=== PATIENT | female | born 1970 | race African-American/Black ===

== ENCOUNTER 2018-01-08 09:15 | Outpatient (CLI) | payer OTHER ==
--- NOTE | 2018-01-08 12:02 | MRI ---
MRI BRAIN WITHOUT CONTRAST: HISTORY: The patient has been previously diagnosed with a pituitary adenoma. Currently, the patient is asympt omatic. Exam is required to assess the pituitary gland. COMPARISON: None. TECHNIQUE: A brain MRI is performed without intravenous Gadolinium administration. Multisequential, multiplanar imaging is performed. FINDINGS: No hemorrhage on the axial gradient echo sequence. The calvarium has a normal T1 marrow signal intensity. Midline brain parenchymal structures are unre markable. Note is made of a mucus retention cyst in the right maxillary sinus. The central arterial flow voids are maintained. Absent restricted diffusion. No erika mass, mass effect, or midline shift. Brain volume is age appropriate. Cortical santizo white matter differentiation is preserved. IMPRESSION: 1. Ventricles and sulci are patent and symmetric. 2. Coronal T1 and T2 weighted images demonstrate a partially empty sella. No evidence of a macroade noma. Pituitary stalk is midline. Visualized optic chiasm and optic nerves are unremarkable. 3. Unremarkable noncontrast brain MRI. No magnetic resonance imaging of a pituitary macroadenoma. A partially empty sella is noted. POS: [facility]
== END 2018-01-08 09:16 | disposition home or self-care (01) ==
LOC: SCSMRI 09:15
PROVIDERS: ATTEND Family Medicine
DX: D35.2 Benign neoplasm of pituitary gland (principal)
CPT/HCPCS: 70551

== ENCOUNTER 2019-07-28 20:12 | Inpatient (IN) | payer OTHER, SELFPAY ==
[2019-07-28] MEDS ORDERED: Labetalol HCl 100 MG/20 ML VIAL ONE (20:29)
--- NOTE | 2019-07-28 20:38 | RAD ---
XR Chest 1 View Portable History: Hypertension Comparison: Radiograph 2012 Findings: Lungs are clear. No pneumothorax or effusion. Cardiac silhouette and mediastinal contours a re within normal limits. No acute osseous abnormality. Impression: No acute intrathoracic abnormality.
--- NOTE | 2019-07-28 20:46 | CT ---
CT Brain WO Con History: Headache Comparison: Brain MRI 2018 Findings: No acute hemorrhage or infarct. No midline shift or mass effect. Ventricular size and extra -axial CSF spaces are normal. Calvarium is intact. Paranasal sinuses and mastoids are clear. Impression: No acute intracranial abnormality.
[2019-07-28 20:47] LABS: #Eosinphils 0.1 thou/uL (0.0-0.7); #Lymphocytes 2.7 thou/uL (1.20-3.40); #Monocytes 0.5 thou/uL (0.11-0.59); #Neutrophils 2.7 thou/uL (1.40-6.50); %Basophils 0.5 % (0.0-1.0); %Eosinophils 2.2 % (0.0-10.0); %Lymphocytes 44.3 % (21.0-51.0); %Monocytes 7.8 % (0.0-10.0); %Neutrophils 45.2 % (42.0-75.0); Hemoglobin 13.3 g/dL (12.0-16.0); Mean Corpuscular HGB CONC 34.5 g/dL (32.0-36.0); Mean Corpuscular Hemoglobin 29.1 pg (27.0-31.0); Mean Corpuscular Volume 84.3 fL (78.0-98.0); Mean Platelet Volume 6.8 fL (7.4-10.4); Platelet Count 297 thou/uL (130-400); RBC Distribution Width 11.8 % (11.5-14.5); Red Blood Cell (RBC) Count 4.58 mill/uL (4.20-5.40)
[2019-07-28 21:07] LABS: ALT (SGPT) 13 U/L (8-55); AST (SGOT) 14 U/L (5-34); Albumin 3.9 g/dL (3.5-5.0); Alkaline Phosphatase 49 U/L (40-110); Anion Gap 15 mmol/L (10-20); BUN (Urea Nitrogen) 10 mg/dL (7.0-18.7); Bilirubin, Total 0.2 mg/dL (0.2-1.2); CK (CPK) 145 U/L (29-168); Calc. Creatinine Clearance 0 mL/min (70-130); Calcium 9.3 mg/dL (7.8-10.44); Carbon Dioxide 23 mmol/L (22-29); Chloride 105 mmol/L (98-107); Estimated GFR-MDRD Greater than 90; Globulin 3.1 g/dL (2.4-3.5); Glucose 111 mg/dL (70-105); Potassium 3.6 mmol/L (3.5-5.1); Sodium 139 mmol/L (136-145)
[2019-07-28] MEDS ORDERED: Acetaminophen 500 MG TAB ONE (23:16)
[2019-07-28 23:29] VITALS: BMI 50.8
[2019-07-29] MEDS ORDERED: Labetalol HCl 100 MG/20 ML VIAL SLOW IVP PRN (00:20)
[2019-07-29] MEDS ORDERED: hydrALAZINE 20 MG/ML VIAL SLOW IVP PRN (00:20)
[2019-07-29] MEDS: traMADol HCl 50 MG TAB PO PRN ×3 (02:57→22:10)
[2019-07-29] MEDS ORDERED: Ondansetron ODT 4 MG TAB PO PRN (05:08)
[2019-07-29] MEDS ORDERED: Acetaminophen 650 MG Suppository PR PRN (05:08)
[2019-07-29] MEDS: Acetaminophen 325 MG TAB PO PRN ×3 (05:44→17:27)
--- NOTE | 2019-07-29 05:54 | HP ---
CHIEF COMPLAINT: Headache. HISTORY OF PRESENT ILLNESS: This is a 49-year-old female patient with past medical history of no significant medical problems, only obesity, came to the hospital after having severe sudden onset headache with no clear triggers, no alleviating factors. The headache was so severe. She reported as a worse headache in her life and she called 911. She was brought in here. She was found to have a systolic blood pressure in the 200s with diastolics in the 100s. The symptoms were associated with nausea, and symptoms improved after the blood pressure has decreased. REVIEW OF SYSTEMS: CONSTITUTIONAL: No fever, no chills or generalized weakness. RESPIRATORY: No cough, sputum production, or shortness of breath. CARDIOVASCULAR: No chest pain or palpitation. GASTROINTESTINAL: No nausea, vomiting, diarrhea, or abdominal pain. CAP MAKER: The patient has headache. No dizziness, or feeling lightheaded. GENITOURINARY: No burning on urination. EXTREMITIES: No leg swelling. All other systems were reviewed and negative except for the findings mentioned above. PAST MEDICAL HISTORY: Positive for IBS. SURGICAL HISTORY: Right knee arthroscopy, D and C, cystoscopy. PSYCHIATRIC HISTORY: No previous psychiatric history. SOCIAL HISTORY: The patient drinks socially. Denies drug use. KNOWN ALLERGIES: No known drug allergies. REPORTED MEDICATIONS: None. FAMILY HISTORY: Reviewed, noncontributory for current presentation. PHYSICAL EXAMINATION: VITAL SIGNS: On presentation, blood pressure 234/120, heart rate 85, respiratory rate was 18, temperature 98.7, pain was 8/10, oxygen saturation was 98% on room air. The blood pressure has come down to 153/80 during my examination. GENERAL APPEARANCE: The patient is alert, oriented, in no acute distress HEENT: Eyes, normal conjunctivae. Moist oral mucosa. Anicteric. No JVD. RESPIRATORY: Bilateral air entry. No rales. No wheezes. Symmetric expansion. CARDIOVASCULAR: Normal rate, regular rhythm. No murmurs. No gallop. No edema. ABDOMEN: Soft, normal bowel sounds. MUSCULOSKELETAL: Baseline range of motion and strength. SKIN: Warm, intact. No pallor. No rash. No redness. Capillary refill seems to be intact. NEUROLOGIC: No evidence of any new focal weakness. Cranial nerves seems to be intact. PSYCHIATRIC: The patient is in good mood. No anxiety. Optimal judgment. IMAGING STUDIES: EKG was reviewed. The patient has a heart rate at 81. Chest x-ray was reviewed. No acute intrathoracic abnormalities. Brain CT was reviewed. The patient had no acute intracranial abnormalities. LABORATORY DATA: Labs were reviewed. Hematology was normal. Chemistry was done, was normal except for glucose of 111. ASSESSMENT AND PLAN: The patient will be placed in the hospital with following medical problems: 1. Hypertensive urgency. The patient presented with severe headache that improved after blood pressure was in control, systolic was in the 220s and diastolic in the one teens. This is a new presentation for her. We have gone in details counseling about losing weight with diet. We are going to start antihypertensive medications at low doses as the patient has never received medications before and might have a good response to initial low dose of anti-hypertensive medications. She has stated she will find a primary care doctor. She will need to be followed closely especially at the very beginning of her treatment for dose adjustments. 2. Mildly elevated glucose. Hyperglycemia could be secondary to acute physical distress. 3. Morbid obesity. The patient has been counselled on weight loss with diet and exercise. 4. Deep venous thrombosis prophylaxis. Job ID: [id number] [facility]
[2019-07-29] MEDS: Carvedilol 3.125 MG TAB PO SCH ×2 (08:07→16:51)
[2019-07-29] MEDS ORDERED: FLU VACC QS2019-20(6MOS UP)/PF 60 MCG/0.5 ML SYRINGE IM ONE (09:00)
[2019-07-29] MEDS ORDERED: Enoxaparin Sodium 40 MG/0.4 ML SYRINGE SC SCH (09:00)
[2019-07-29] MEDS ORDERED: NORGESTIMATE ETHINYL ESTRADIOL PO SCH (09:00)
[2019-07-29] MEDS ORDERED: Lisinopril 10 MG TAB PO SCH (09:00)
[2019-07-29] MEDS ORDERED: Fioricet 325/50/40 mg Tablet PO PRN (17:03)
[2019-07-29] MEDS ORDERED: Aspirin/APAP/Caffeine Tab (Excedrin Migraine) PO PRN (17:03)
--- NOTE | 2019-07-29 22:33 | PRG ---
DATE OF SERVICE: SUBJECTIVE: A 49-year-old female with morbid obesity, presented to the hospital with headache. Her workup was consistent with hypertensive urgency with a blood pressure of 234/120. She has been started on oral antihypertensives. She denies any chest discomfort at this time. She continues to have headache, however, it is improving. She denies any focal neurologic deficit. REVIEW OF SYSTEMS: As discussed above. Patient denies any gross hematuria or epistaxis. CURRENT MEDICATIONS: Reviewed. PHYSICAL EXAMINATION: VITAL SIGNS: Temperature 98.6, pulse 94, respirations 20, blood pressure of 151/73, with O2 saturation of 96% on room air. GENERAL: A 49-year-old female, in no apparent distress. LUNGS: Clear to auscultation bilaterally. No wheezing, rales, or rhonchi. HEART: S1 and S2 present. Regular rate and rhythm. No rubs or gallops. ABDOMEN: Soft and nontender. Bowel sounds present. No rebound or guarding. EXTREMITIES: No edema or calf tenderness. NEUROLOGY: Grossly nonfocal. Moves all 4 extremities. PSYCHIATRY: Alert, awake, and oriented x3. LABORATORY FINDINGS: 1. WBC 6.0 with hemoglobin 13.3. 2. Sodium 139 with potassium 3.6, BUN 10, and creatinine 0.78. 3. Troponin was negative. 4. CT scan of the brain by my review was negative for acute findings. Chest x-ray by my review was negative for infiltrate. 5. Echocardiogram showed ejection fraction of 60% to 65% with mild mitral regurgitation. 6. Telemetry monitoring by my review showed sinus rhythm. IMPRESSION: 1. Hypertensive urgency. 2. Morbid obesity with a BMI of 50.8. 3. Suspected sleep apnea. 4. Mild mitral regurgitation. 5. Impaired glucose tolerance. PLAN: Patient has been started on carvedilol 3.125 mg twice a day along with lisinopril. Patient continues to have headaches. We will add Fioricet as needed. The headache is probably secondary to hypertensive urgency with probable migraine due to phono and photophobia. Echocardiogram was reviewed. She was extensively counseled on hypertension. DISPOSITION: Probably later today or in a.m. Job ID: [id number]
[2019-07-30] MEDS: Sodium Chloride 0.9% 1,000 ML IV SCH ×4 (01:08→22:55)
[2019-07-30] MEDS ORDERED: Sodium Chloride 0.9% 500 ML IVPB SCH (02:00)
[2019-07-30] MEDS: Ondansetron PF 4 MG/2 ML Vial IVP PRN ×2 (05:12→22:44)
[2019-07-30 06:50] LABS: Troponin I Less than 0.010 ng/mL (< 0.028)
--- NOTE | 2019-07-30 07:45 | CT ---
PRELIMINARY REPORT/[facility]/EMERGENCY AFTER HOURS PROCEDURE: PROCEDURE INFORMATION: Exam: CT Angiography Chest With Contrast Exam date and time: 07/30/2019 2:47 AM Clinical history: 49 years old, female; Other: Syncope; Patient HX: F49, eval for pe, elevated ddimer of 13.26. Patient states she got up to use the restroom and she became light headed and felt like sh e would faint. Denies chest pain or SOB. TECHNIQUE: Imaging protocol: Computed tomographic angiography of the chest with intravenous contrast. 3D renderi ng: MIP reconstructed images were created and reviewed. COMPARISON: No relevant prior studies available. FINDINGS: Enlarged thyroid gland without discrete focal lesion. Pulmonary arteries: Suboptimal enhancement of pulmonary arteries without definitive pulmonary emboli. Aorta: No aortic aneurysm. No aortic dissection. Lungs: There are multiple bilateral scattered pulmonary nodules measuring up to 7.5 mm. No consolidat ion. No masses. Pleural space: No pneumothorax. No pleural effusion. Heart: Mild global cardiomegaly. No pericardial effusion. Lymph nodes: No enlarged lymph nodes. Bones/joints: No acute fracture. Soft tissues: Unremarkable. IMPRESSION: Suboptimal enhancement of pulmonary arteries without definitive pulmonary emboli. There are multiple bilateral scattered pulmonary nodules measuring up to 7.5 mm. For patients at low risk (minimal or absent history of smoking and of other known risk factors), recommend CT at 3-6 sherrill hs, then consider CT at 18-24 months. For patients at high risk (history of smoking or of other known risk factors), recommend CT at 3-6 months, then CT at 18-24 months. (Lynne et al., Fleischner Society, 2017) Thank you for allowing us to participate in the care of your patient. Dictated and Authenticated by: Roxane Rebollar MD 07/30/2019 3:36 AM Central Time ([place] & [place]) FINAL REPORT CT ANGIOGRAM OF CHEST: Date: 07/30/19 HISTORY: Elevated D-Dimer. COMPARISON: None. TECHNIQUE: CT angiogram of the chest is performed in the axial plane. Three-dimensional reformatted images are s ubmitted for interpretation. FINDINGS: Limited evaluation of the pulmonary arterial system due to poor timing of contrast bolus. No obvious central filling defects. Mediastinal structures and visualized solid organs are unremarkable. Trachea and central bronchi are patent. There are multiple scattered pulmonary nodules. The largest n odule is noted in the right lower lobe, measuring approximately 0.9 cm. IMPRESSION: This report is in agreement with the preliminary report by Nicole. Limited evaluation of the pulmonary arterial system due to timing of contrast bolus. No obvious centr al PE. Multiple lung parenchymal nodules as described in the preliminary report by Nicole. CODE LN POS: [facility]
[2019-07-30] MEDS ORDERED: Enoxaparin Sodium 40 MG/0.4 ML SYRINGE SC SCH (09:00)
[2019-07-30] MEDS ORDERED: Lisinopril 20 MG TAB PO SCH (09:00)
[2019-07-30] MEDS: Acetaminophen 325 MG TAB PO PRN ×2 (13:00→22:43)
[2019-07-30] MEDS ORDERED: Senokot 8.6 MG TAB PO PRN (13:09)
[2019-07-30] MEDS ORDERED: Bisacodyl 10 MG SUPP PR PRN (13:09)
[2019-07-30] MEDS ORDERED: Polyethylene Glycol 3350 17 GM Packet PO PRN (13:09)
[2019-07-30] MEDS ORDERED: Simethicone Chewable 80 MG TAB PO PRN (13:12)
[2019-07-30] MEDS ORDERED: Diabetic Tussin 200 MG/10 ML UDCUP PO PRN (13:12)
[2019-07-30] MEDS ORDERED: Iopamidol 370 76% 100 ML VIAL ONE (14:47)
--- NOTE | 2019-07-30 15:50 | RAD ---
TWO VIEW ABDOMEN: 07/30/19 INDICATION: Nausea. Abdominal pain. FINDINGS: There are scattered loops of air filled bowel, some of which are mildly dilated. No obvious free air on the upright view. Imaged lung bases are grossly clear. There is excreted contrast of the urinary b ladder. IMPRESSION: Mild prominence of scattered air filled small bowel. This could relate to an ileus or developing sergio l obstruction. Continued imaging follow-up may be obtained as clinically necessary for further evalua tion. POS: [facility]
--- NOTE | 2019-07-30 19:26 | PRG ---
DATE OF SERVICE: 07/30/2019 SUBJECTIVE: A 49-year-old female with morbid obesity, presented to the hospital with headache and hypertensive urgency with a blood pressure 234/120. She was started on lisinopril 10 mg and carvedilol 3.125 mg. Her blood pressure remained stable yesterday. However last night, the patient had a near syncopal episode while she was on the commode. Her blood pressure dropped to 70/43 on standing. Prior to that, her blood pressure was in 140s to 150s until 9:00 pm. She was diaphoretic and lightheaded at this time. Headache has improved. However, today she developed abdominal discomfort with mild nausea. She continues to have small bowel movements. No fever or chills reported. OBJECTIVE: VITAL SIGNS: Orthostatic vitals this morning was negative. However, this afternoon, her blood pressure dropped to 90/52. Her O2 saturation is 97% on room air, respirations of 16, pulse rate of 70 with a temperature of 98.4. GENERAL: A 49-year-old female, in no apparent distress except for low-grade abdominal discomfort. LUNGS: Clear to auscultation bilaterally. No wheezing, rales, or rhonchi. HEART: S1 and S2 present. Regular rate and rhythm. No rubs or gallops. ABDOMEN: Soft, mild diffuse tenderness. No rebound or guarding. No costovertebral angle tenderness. Bowel sounds are present. EXTREMITIES: No edema or calf tenderness. NEUROLOGICAL: Grossly nonfocal. LABORATORY DATA: Troponin this morning was negative. CT angiogram of the chest by my review was negative for central pulmonary embolism. It showed multiple bilateral scattered pulmonary nodules measuring up to 7.5 mm. Echocardiogram showed left ventricular ejection fraction 60% to 65% with mild mitral regurgitation. IMPRESSION: 1. Hypertensive urgency on admission. 2. Near syncope due to orthostatic hypotension. Please note that patient was on lisinopril 10 mg and carvedilol 3.125 mg. 3. New onset abdominal discomfort, that started this morning. KUB showed mild prominence of the scattered air-filled small bowel, which could be related to ileus versus developing bowel obstruction. 4. Suspected sleep apnea. A sleep study as outpatient was recommended. 5. Morbid obesity with a BMI of 50.8. 6. Mild mitral regurgitation. 7. Impaired glucose tolerance. 8. Multiple bilateral scattered pulmonary nodules measuring up to 7.5 mm. The patient will need a repeat CT scan in 3-6 months per Radiology recommendation. PLAN: We will continue with gentle IV hydration. We will change the diet to clear liquid diet until midnight. We will keep n.p.o. past midnight. Consult Gastroenterology in a.m. Recheck labs in a.m. Coreg and lisinopril were discontinued. The patient was advised to ambulate in the hallway. Plan of care was discussed with the patient in detail. She stated understanding. Job ID: [id number]
[2019-07-30] MEDS: traMADol HCl 50 MG TAB PO PRN (22:43)
[2019-07-31 05:21] LABS: #Basophils 0.1 thou/uL (0.0-0.2); #Eosinphils 0.1 thou/uL (0.0-0.7); #Lymphocytes 2.1 thou/uL (1.20-3.40); #Monocytes 0.6 thou/uL (0.11-0.59); #Neutrophils 6.8 thou/uL (1.40-6.50); %Basophils 0.5 % (0.0-1.0); %Eosinophils 1.2 % (0.0-10.0); %Lymphocytes 21.2 % (21.0-51.0); %Monocytes 6.6 % (0.0-10.0); %Neutrophils 70.5 % (42.0-75.0); Hemoglobin 12.8 g/dL (12.0-16.0); Mean Corpuscular HGB CONC 34.6 g/dL (32.0-36.0); Mean Corpuscular Hemoglobin 29.4 pg (27.0-31.0); Mean Corpuscular Volume 84.9 fL (78.0-98.0); Platelet Count 293 thou/uL (130-400); RBC Distribution Width 11.9 % (11.5-14.5); Red Blood Cell (RBC) Count 4.36 mill/uL (4.20-5.40); White Blood Cell (WBC) Count 9.7 thou/uL (4.8-10.8)
[2019-07-31 05:50] LABS: ALT (SGPT) 10 U/L (8-55); AST (SGOT) 16 U/L (5-34); Albumin 3.5 g/dL (3.5-5.0); Alkaline Phosphatase 42 U/L (40-110); Anion Gap 10 mmol/L (10-20); BUN (Urea Nitrogen) 10 mg/dL (7.0-18.7); Bilirubin, Total 0.3 mg/dL (0.2-1.2); Calc. Creatinine Clearance 210 mL/min (70-130); Calcium 8.5 mg/dL (7.8-10.44); Carbon Dioxide 24 mmol/L (22-29); Chloride 105 mmol/L (98-107); Estimated GFR-MDRD Greater than 90; Globulin 2.6 g/dL (2.4-3.5); Glucose 113 mg/dL (70-105); Magnesium 1.8 mg/dL (1.6-2.6); Potassium 4.3 mmol/L (3.5-5.1); Protein, Total 6.1 g/dL (6.0-8.3); Sodium 135 mmol/L (136-145)
[2019-07-31] MEDS: Sodium Chloride 0.9% 1,000 ML IV SCH ×2 (07:41→08:29)
[2019-07-31 09:01] LABS: Pregnancy Test - Urine (BHCG) Negative (Negative); Pregu Control Background? CLEAR/WHITE (CLR/WHITE); Pregu Control Bar Appear? YES (CONTROL BAR); Specific Gravity 1.014 (1.002-1.036)
[2019-07-31 09:14] LABS: Bilirubin Negative (Negative); Blood, Urine 2+ (Negative); Clarity Clear (Clear); Glucose, Urine (Dipstick) Normal (Negative); Leukocyte Negative Leu/uL (Negative); Nitrite Negative (Negative); Protein, Urine (Dipstick) Negative (Neg-Trace); Urobilinogen Normal mg/dL (Less than 2)
[2019-07-31 09:24] LABS: Bacteria/HPF 2+ HPF (None Seen); WBC/HPF None Seen HPF (0-3)
--- NOTE | 2019-07-31 15:21 | CT ---
CT abdomen and pelvis with IV and oral contrast HISTORY: Abdominal pain. Abnormal radiograph. Possible ileus. FINDINGS: Small nodules at the partially visualized lung bases have been better detailed on recent CT chest exams. Solid organs are intact. No free air or free fluid. Oral contrast is present throughout the small and large bowel. No evidence of obstruction or edema. A ppendix is not visualized. Possibly surgically absent? Urinary bladder is unremarkable. Uterus measures up to 17.7 cm length and is expanded by multiple ill -defined hypoechoic masses measuring up to 5.8 cm. IMPRESSION: No evidence of bowel obstruction, inflammation, or ileus. No active inflammatory abnormal ities are demonstrated. Severe fibroid involvement of the uterus.
[2019-07-31] MEDS ORDERED: cefTRIAXone\\ROCEPHIN 1 GM in Sodium Chloride 0.9% 100 ML IVPB SCH (23:00)
[2019-07-31] MEDS ORDERED: cefTRIAXone\\ROCEPHIN 1 GM VIAL ONE (23:47)
[2019-08-01 04:27] LABS: #Eosinphils 0.1 thou/uL (0.0-0.7); #Lymphocytes 2.3 thou/uL (1.20-3.40); #Monocytes 0.6 thou/uL (0.11-0.59); #Neutrophils 4.7 thou/uL (1.40-6.50); %Basophils 0.1 % (0.0-1.0); %Eosinophils 1.7 % (0.0-10.0); %Lymphocytes 29.6 % (21.0-51.0); %Monocytes 8.1 % (0.0-10.0); %Neutrophils 60.4 % (42.0-75.0); Hemoglobin 12.5 g/dL (12.0-16.0); Mean Corpuscular HGB CONC 34.3 g/dL (32.0-36.0); Mean Corpuscular Hemoglobin 29.3 pg (27.0-31.0); Mean Corpuscular Volume 85.2 fL (78.0-98.0); Mean Platelet Volume 7.1 fL (7.4-10.4); Platelet Count 277 thou/uL (130-400); RBC Distribution Width 11.8 % (11.5-14.5); Red Blood Cell (RBC) Count 4.27 mill/uL (4.20-5.40); White Blood Cell (WBC) Count 7.7 thou/uL (4.8-10.8)
[2019-08-01 04:37] LABS: Lactic Acid 2.3 mmol/L (0.5-2.2)
[2019-08-01 04:44] LABS: ALT (SGPT) 12 U/L (8-55); AST (SGOT) 19 U/L (5-34); Albumin 3.7 g/dL (3.5-5.0); Alkaline Phosphatase 44 U/L (40-110); Anion Gap 12 mmol/L (10-20); BUN (Urea Nitrogen) 8 mg/dL (7.0-18.7); Bilirubin, Total 0.2 mg/dL (0.2-1.2); Calc. Creatinine Clearance 194 mL/min (70-130); Calcium 8.8 mg/dL (7.8-10.44); Carbon Dioxide 26 mmol/L (22-29); Chloride 104 mmol/L (98-107); Estimated GFR-MDRD Greater than 90; Glucose 109 mg/dL (70-105); Protein, Total 6.7 g/dL (6.0-8.3); Sodium 138 mmol/L (136-145)
[2019-08-01] MEDS: Sodium Chloride 0.9% 1,000 ML IV SCH (06:10)
--- NOTE | 2019-08-01 07:26 | PDOC.HOSPP ---
- Subjective Encounter Date: 07/31/19 Encounter Time: 08:00 Subjective: Patient seen and examined for labile HTN. Abd pain getting worse - periumbilical - worse with movement. No diarrhea. Mild nausea. No further vomiting. No other complaints. No overnight events - Objective Vital Signs & Weight: Vital Signs (12 hours) Temp Pulse Resp BP BP Pulse Ox 08/01/19 03:40 98.7 F 89 20 129/74 99 07/31/19 20:20 98.6 F 98 16 140/77 96 Weight Weight 314 lb 9.6 oz I&O: 07/31/19 08/01/19 08/02/19 06:59 06:59 06:59 Intake Total 1786 1899 Balance 1786 1899 Result Diagrams: 08/01/19 03:37 08/01/19 03:37 EKG Reviewed by me: Yes (Tele SR) Hospitalist ROS - Review of Systems Cardiovascular: denies: chest pain, palpitations, orthopnea, paroxysmal noc. dyspnea, edema, light headedness, other Gastrointestinal: denies: nausea, vomiting, abdominal pain, diarrhea, constipation, melena, hematochezia, other - Medication Medications: Active Medications Generic Name Dose Route Start Last Admin Trade Name Freq PRN Reason Stop Dose Admin Acetaminophen 650 mg 07/29/19 05:08 07/30/19 22:43 Tylenol PO 650 mg Q4H PRN Administration Headache/Fever/Mild Pain (1-3) Sodium Chloride 1,000 mls @ 75 mls/hr 07/31/19 08:17 08/01/19 06:10 Normal Saline 0.9% IV 1,000 mls .[id number] SERENE Administration Ceftriaxone Sodium 1 gm/ 100 mls @ 200 mls/hr 07/31/19 23:00 07/31/19 23:56 Sodium Chloride IVPB 100 mls 2300 SERENE Administration Ondansetron HCl 4 mg 07/29/19 05:08 07/30/19 13:00 Zofran Odt PO 4 mg Q6H PRN Administration Nausea/Vomiting Ondansetron HCl 4 mg 07/29/19 05:08 07/30/19 22:44 Zofran IVP 4 mg Q6H PRN Administration Nausea/Vomiting Simethicone 80 mg 07/30/19 13:12 07/30/19 22:44 Mylicon Chewable PO 80 mg PCHS PRN Administration Gas Pain Tramadol HCl 50 mg 07/29/19 02:32 07/30/19 22:43 Ultram PO 50 mg Q4H PRN Administration Moderate Pain (4-6) - Exam General Appearance: NAD Neck: no JVD Heart: RRR, no gallops Respiratory: CTAB, no rales Gastrointestinal: soft, normal bowel sounds, no palpable masses, tender to palpation (gen) Extremities: no edema Hosp A/P - Plan DVT proph w/SCDs IMPRESSION: 1. Hypertensive urgency on admission. 2. Near syncope due to orthostatic hypotension. Please note that patient was on lisinopril 10 mg and carvedilol 3.125 mg. 3. Abd pain with abnormal KUB. 4. Suspected sleep apnea. 5. Morbid obesity with a BMI of 50.8. 6. Mild mitral regurgitation. 7. Impaired glucose tolerance. 8. Multiple bilateral scattered pulmonary nodules measuring up to 7.5 mm. The patient will need a repeat CT scan in 3-6 months per Radiology recommendation. PLAN: CT abd due to persistent Abd pain GI consult Cont IVF BP meds on hold due to labile HTN Cont to monitor
[2019-08-01 12:14] VITALS: BP 129/77; TEMP 97.9
--- NOTE | 2019-08-01 13:34 | CON ---
DATE OF CONSULTATION: 07/31/2019 HISTORY OF PRESENT ILLNESS: Ms. 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 On the day of admission, she was feeling bad with terrible headache, that worse she has ever had, ultimately summoned the EMS and was brought in with malignant hypertension. She had a CAT scan of her brain, which was okay. She had an echocardiogram, which showed normal cardiac function, mild MR was present on that. She was doing good until yesterday. Apparently, she did start developing some crampy lower abdominal pain, like she needs to go to the bathroom. She went to go to the bathroom, had a syncopal episode. Here in the ER, she had IV fluids. Her blood pressure medications were stopped. Apparently, she got Gas-X and some Ultram last night for pain. Today, she got a CAT scan, pending. Her pain is much better now. She reports she has not had any pain like this in the past. She does not have tendency toward constipation, in fact she has some diarrhea, predominant irritable bowel. She has not had endoscopies before. She denies any fever or chills. She denies dysuria, frequency, or urgency. She denies any vaginal discharge. She is starting to spot for menstrual cycle, but she does not think this is pain consistent with menstrual cramps. She has no fever or chills, but she did vomit once with the pain, but has not been nauseated typically, overall is feeling a little better. She is drinking contrast for a CT. Yesterday, she had an x-ray, KUB ordered by the primary service taking care of her, that showed mild prominence of some air-filled bowel loops. The radiologist said this could be an ileus or developing bowel obstruction. The patient has not had any previous bowel obstructions. PAST MEDICAL HISTORY: Notable for irritable bowel, diarrhea predominant. Negative for diabetes, hyperlipidemia, or prior cardiac disease. PAST SURGICAL HISTORY: Includes; 1. Umbilical hernia repair. 2. She has had an endometrial ablation. 3. Right knee arthroscopy. 4. Cystoscopy for hematuria in the past. SOCIAL HISTORY: The patient drinks alcohol socially. Does not use drugs. Does not smoke. ALLERGIES: NONE KNOWN. MEDICATIONS: At home, none except for control pill. Here, she has been on; 1. P.r.n. Tylenol. 2. Excedrin Migraine. 3. Bisacodyl. 4. Zofran p.r.n. 5. Protonix. 6. MiraLAX p.r.n. 7. Senokot p.r.n. 8. Mylicon p.r.n. 9. Tramadol p.r.n. 10. Normal saline. She had been started on lisinopril and carvedilol, but those have been held. Also, butalbital with acetaminophen and caffeine was given and has been discontinued. FAMILY HISTORY: Father of pancreatic cancer in his late 50s. No family history of uterine or bladder or colon cancers. REVIEW OF SYSTEMS: Negative for dysphagia, odynophagia, reflux, melena, hematochezia, hematemesis, or issues with constipation. Last bowel movement was just a few days before the day of admission. She has no history of hypertension, chest pain, dyspnea on exertion, orthopnea, or edema in the past. PHYSICAL EXAMINATION: GENERAL: The patient is resting comfortably, sitting up in the side of the bed . She is in no distress. She is overweight. VITAL SIGNS: Temperature is 98.2 to 98.9, she has been afebrile since admission, temperature is 98.4, blood pressure 133/78. HEENT: Oropharynx without lesions. Neck is supple without any adenopathy. Conjunctivae and sclerae are clear. There is no bruits or supraclavicular adenopathy. LUNGS: Clear to auscultation bilaterally without wheezing. HEART: Regular rate and rhythm without clicks or murmurs. ABDOMEN: Soft, protuberant. There is large pannus, unable to palpate for hepatosplenomegaly. There is no evidence of umbilical hernia. There is no evidence of inguinal hernias. There is really no tenderness in the lower abdomen at this time. RECTAL: Brown stool in the vault. There is no impaction. EXTREMITIES: Some trace edema. LABORATORY STUDIES: White count 9.7 today, hemoglobin 12.8, and platelet count 293. Sodium 135, potassium 4.3, BUN and creatinine are 10 and 0.7. Liver function tests normal. Troponins are negative. Urine showed 2+ , red blood cells 4-6 squames. MICROBIOLOGY: None. ASSESSMENT: Vague lower abdominal pain, this is after receiving blood pressure medicines, being admitted for hypertensive urgency/crisis. She has a benign exam. She has an x-ray, that does not really add much to the process. This may have been some relative intestinal ischemia from hypoperfusion and hypotension as her pressure was in the 70s when she had a vasovagal episode, going to the bathroom. There are no overt signs of bowel obstruction clinically. There are no overt signs of peritonitis, gastroenteritis, or colitis. RECOMMENDATIONS: 1. We will proceed with a CAT scan, shows it has been ordered. I suspect this will be normal and we can advance diet as tolerated. If it is not, we can make further recommendations based on those findings. 2. She should have a screening colonoscopy. This could be done as an outpatient at a later date in our office. We will follow along with you. Job ID: [id number]
--- NOTE | 2019-08-02 00:43 | DIS ---
DATE OF ADMISSION: 07/28/2019 DATE OF DISCHARGE: 08/01/2019 DISCHARGE DISPOSITION: Home. FOLLOWUP: 1. Follow up with primary care physician, Dr. Bradly Rodriguez, in 1 week. 2. Follow up with Dr. Gold in 2 to 3 weeks. ALLERGIES: NO KNOWN DRUG ALLERGIES. PATIENT WAS SEEN AND EXAMINED ON THE DAY OF DISCHARGE. DENIES ANY NEW COMPLAINTS. NO CHEST PAIN, SHORTNESS OF BREATH, OR PALPITATIONS REPORTED. SYMPTOMATICALLY, SHE FEELS FINE. DISCHARGE MEDICATIONS: 1. Amlodipine 2.5 mg daily as needed for systolic blood pressure over 140s. 2. Macrobid 100 mg b.i.d. for 1 week. 3. Oral control will be resumed. BRIEF HOSPITAL COURSE: Patient is a 49-year-old female, with morbid obesity and interval bowel syndrome, presented to the hospital with significant headache. Please refer to the history and physical for further details. The patient was admitted to the hospital with a diagnosis of hypertensive urgency. Her blood pressure in the emergency room was 234/120. She received several IV medications in the emergency room. Later on, her blood pressure remained stable on lisinopril 10 mg daily and carvedilol 3.125 b.i.d. On the following night, patient had vasovagal episode with a blood pressure in systolic 70s. Antihypertensives were discontinued at this time. She was started on IV fluids with improvement in her blood pressure. Next morning, she developed abdominal cramping. KUB showed ileus versus developing bowel obstruction. For this reason, she underwent a CT scan of the abdomen and pelvis that was negative for acute findings. It showed severe fibroid involvement of the uterus. Her abdominal pain has significantly improved. She also had an echocardiogram that showed ejection fraction 60% to 65% with normal left ventricular size. During the episode of low blood pressure, a CT angiogram of the chest was performed that showed multiple pulmonary nodules. FINAL DIAGNOSES: 1. Hypertensive urgency on admission probably precipitated by stress. Her ex- was recently hospitalized for respiratory failure and cardiac arrest requiring intubation per patient report. Please note that antihypertensives have been discontinued. 2. Near syncopal episode due to orthostatic hypotension. Patient was on lisinopril 10 mg and carvedilol 3.125 mg b.i.d. during this episode. 3. Abdominal pain with abnormal KUB. CT scan of the abdomen, however, was negative. 4. Severe uterine fibroid. 5. Suspected sleep apnea. 6. Multiple pulmonary nodules. 7. Mild mitral regurgitation. 8. Morbid obesity with a BMI of 50.8. 9. Impaired glucose tolerance. 10. Lactic acidosis probably secondary to hypotension. 11. Hyponatremia. PLAN: Plan of care was discussed with the patient in detail. She stated understanding. Job ID: [id number]
--- NOTE | 2019-08-02 02:34 | EKG ---
Test Reason : Blood Pressure : / mmHG Vent. Rate : 081 BPM Atrial Rate : 081 BPM P-R Int : 152 ms QRS Dur : 096 ms QT Int : 376 ms P-R-T Axes : 049 003 033 degrees QTc Int : 436 ms Normal sinus rhythm Normal ECG Confirmed by CHARLIE JIMENEZ, GUME Levin ([id number]), food expeditor MATTHEW WATERS ([id number]) on 08/02/2019 2:34:02 AM Referred By: Confirmed By:GUME GUERRA MD
== END 2019-08-01 13:37 | disposition home or self-care (01) | DRG 305 ==
LOC: ERS 20:12 → OBSVTOIN 23:27 → 2SW 23:27
PROVIDERS: ADMIT Hospitalist; ATTEND Hospitalist
DX: I16.0 Hypertensive urgency (principal); I16.9 Hypertensive crisis, unspecified; Z68.43 Body mass index [BMI] 50.0-59.9, adult; E87.2 Acidosis; E87.1 Hypo-osmolality and hyponatremia; R73.9 Hyperglycemia, unspecified; E66.01 Morbid (severe) obesity due to excess calories; G47.30 Sleep apnea, unspecified; I34.0 Nonrheumatic mitral (valve) insufficiency; I95.1 Orthostatic hypotension; R10.9 Unspecified abdominal pain; D25.9 Leiomyoma of uterus, unspecified; R91.1 Solitary pulmonary nodule
CPT/HCPCS: 36415; 36416; 70450; 71045; 71275; 74019; 74177; 80053; 81001; 81025; 82550; 83605; 83735; 84484; 85025; 85379; 87086; 93005; 93306; 96374; 99292; J0696; J1650; J2405; J3490; J7050; Q0162; Q9967

== ENCOUNTER 2021-07-18 07:01 | Day surgery (SDC) | payer OTHER ==
[2021-07-17 13:46] VITALS: BMI 50.5
[2021-07-18] MEDS ORDERED: PROPOFOL 200 MG/20 ML VIAL ONE (09:13)
== END 2021-07-18 10:47 | disposition home or self-care (01) ==
LOC: SDC 07:01
PROVIDERS: ATTEND Internal Medicine Gastroenterology
PROC: 0DJD8ZZ Inspection of Lower Intestinal Tract, Via Natural or Artificial Opening Endoscopic (ICD-10-PCS; principal; 2021-07-18)
DX: Z12.11 Encounter for screening for malignant neoplasm of colon (principal); K64.0 First degree hemorrhoids; Z79.3 Long term (current) use of hormonal contraceptives
CPT/HCPCS: J2704

== ENCOUNTER 2021-07-19 10:28 | Outpatient (CLI) | payer OTHER | END 2021-07-19 10:29 | disposition home or self-care (01) | LOC: RAD 10:28 | PROVIDERS: ATTEND Internal Medicine Pulmonary Disease | DX: R06.00 Dyspnea, unspecified (principal) | CPT/HCPCS: 71046 ==